=== PATIENT | female | born 1940 | race Caucasian/White ===

== ENCOUNTER 2019-03-20 14:00 | Emergency (ER) | payer OTHER | END 2019-03-20 19:41 | disposition home or self-care (01) | LOC: JER 14:00 ==

== ENCOUNTER 2019-04-06 10:07 | Emergency (ER) | payer OTHER ==
[2019-04-06 10:14] VITALS: BP 131/68; PULSE 60; TEMP 98; BMI 25.6
[2019-04-06] MEDS ORDERED: MAGNESIUM CITRATE 300 ML BOTTLE PO ONE (10:39)
--- NOTE | 2019-04-06 10:39 | PDOC ---
History of Present Illness - General Chief Complaint: Constipation Stated Complaint: CONSTIPATION Time Seen by Provider: 04/06/19 10:15 - History of Present Illness Initial Comments: 04/06/19 11:29 Chief complaint: Constipation History of present illness: Patient states that she is having smaller than usual bowel movements, consisting only of pebble sized pieces of stool. This has been an intermittent problem for several months. Denies abdominal pain, nausea, vomiting, hematemesis, melena, bloody stool. Has been prescribed MiraLAX but does not take it regularly. No other medications. Eating and drinking well Review of systems: As above. Otherwise negative Past medical history: No serious cardiac, pulmonary, metabolic, or GI disease Social/family history reviewed and noncontributory Physical exam: Alert and oriented well-developed well-nourished no acute distress cooperative Afebrile, vital signs normal No pallor or icterus. ENT clear Neck supple without bruit mass or nodes Chest clear CV regular without murmur rub or gallop Abdomen nondistended. Bowel sounds normal. Soft without mass tenderness organomegaly. No CVAT Neurological intact Rectal exam reveals no masses or tenderness. There is a normal amount of soft brown stool which is guaiac-negative Impression: Chronic constipation, no acute GI disease Plan: Symptomatic treatment and follow-up maintenance porter as directed. Return to ER if severe symptoms develop. Fully ambulatory and in no significant discomfort or other distress upon discharge to follow-up as directed Past History - Past Medical History Allergies/Adverse Reactions: Allergies Allergy/AdvReac Type Severity Reaction Status Date / Time morphine Allergy Verified 04/06/19 10:09 Home Medications: Ambulatory Orders NK [No Known Home Medication] 03/20/19 COPD: No GI Disorders: Yes (constipation, diverticulitis) Hypercholesterolemia: Yes - Surgical History Cholecystectomy: Yes - Suicide/Smoking/Psychosocial Hx Smoking Status: No Smoking History: Never smoked Have you smoked in the past 12 months: No Number of Cigarettes Smoked Daily: 0 Hx Alcohol Use: No Drug/Substance Use Hx: No *Physical Exam - Vital Signs Last Vital Signs Temp Pulse Resp BP Pulse Ox 98 F 60 18 131/68 100 04/06/19 10:08 04/06/19 10:08 04/06/19 10:08 04/06/19 10:08 04/06/19 10:08 *DC/Admit/Observation/Transfer Diagnosis at time of Disposition: Constipation Qualifiers: Constipation type: unspecified constipation type Qualified Code(s): K59.00 - Constipation, unspecified - Discharge Dispostion Disposition: HOME Condition at time of disposition: Stable Decision to Admit order: No - Referrals - Patient Instructions Printed Discharge Instructions: DI for Constipation Additional Instructions: See your GI doctor as scheduled for follow-up Continue to take MiraLAX as directed, increase fiber in your diet, and drinking more fluids Return to ER if there is severe abdominal pain, or other symptoms develop. - Post Discharge Activity
== END 2019-04-06 11:28 | disposition home or self-care (01) ==
LOC: FER 10:07
DX: K59.00 Constipation, unspecified (principal); E78.00 Pure hypercholesterolemia, unspecified
CPT/HCPCS: 36415; 82272; 99282-25

== ENCOUNTER 2019-05-11 10:51 | Day surgery (SDC) | payer OTHER | END 2019-05-11 13:45 | disposition home or self-care (01) | LOC: FASU-ENDO 10:51 ==

== ENCOUNTER 2019-06-28 09:12 | Emergency (ER) | payer OTHER | END 2019-06-28 10:56 | disposition home or self-care (01) | LOC: FER 09:12 ==

== ENCOUNTER 2019-12-14 09:30 | Day surgery (SDC) | payer OTHER ==
[2019-12-08 11:22] VITALS: BMI 25.0
[2019-12-14] MEDS ORDERED: LIDOCAINE HCL/PF 2% SDV 5ML VIAL ONE (11:58)
[2019-12-14] MEDS ORDERED: PROPOFOL 20 ML ONE ×3 (11:59)
[2019-12-14 16:06] VITALS: TEMP 98.3
[2019-12-14 16:36] VITALS: BP 132/78; PULSE 59
== END 2019-12-14 13:00 | disposition home or self-care (01) ==
LOC: FASU-ENDO 09:30
PROVIDERS: ATTEND Internal Medicine Gastroenterology
PROC: 0DJD8ZZ Inspection of Lower Intestinal Tract, Via Natural or Artificial Opening Endoscopic (ICD-10-PCS; principal; 2019-12-14 12:00)
DX: Z12.11 Encounter for screening for malignant neoplasm of colon (principal); K64.1 Second degree hemorrhoids

== ENCOUNTER 2023-03-04 10:59 | Day surgery (SDC) | payer OTHER ==
[2023-02-26 16:22] VITALS: BMI 23.6
[2023-03-04 13:11] VITALS: PULSE 68
[2023-03-04 13:12] VITALS: BP 124/70; RESP 18; TEMP 97.4
== END 2023-03-04 13:12 | disposition home or self-care (01) ==
LOC: FASU-ENDO 10:59
PROVIDERS: ATTEND Internal Medicine Gastroenterology
PROC: 0DJD8ZZ Inspection of Lower Intestinal Tract, Via Natural or Artificial Opening Endoscopic (ICD-10-PCS; principal; 2023-03-04 12:01)
DX: Z12.11 Encounter for screening for malignant neoplasm of colon (principal); K64.1 Second degree hemorrhoids; K64.8 Other hemorrhoids; K57.30 Diverticulosis of large intestine without perforation or abscess without bleeding; Z86.010 Personal history of colon polyps; I10 Essential (primary) hypertension

== ENCOUNTER 2024-05-11 09:00 | Day surgery (SDC) | payer OTHER ==
[2024-05-06 10:29] VITALS: BMI 22.6
[2024-05-11 11:49] VITALS: TEMP 97.4
[2024-05-11 12:04] VITALS: BP 118/65; PULSE 61; RESP 18
== END 2024-05-11 12:32 | disposition home or self-care (01) ==
LOC: FASU-ENDO 09:00
PROVIDERS: ATTEND Internal Medicine Gastroenterology
PROC: 0DJD8ZZ Inspection of Lower Intestinal Tract, Via Natural or Artificial Opening Endoscopic (ICD-10-PCS; principal; 2024-05-11 11:31)
DX: Z12.11 Encounter for screening for malignant neoplasm of colon (principal); Z86.010 Personal history of colon polyps

== ENCOUNTER 2024-07-13 11:25 | Day surgery (SDC) | payer OTHER ==
[2024-07-07 11:00] VITALS: BMI 22.6
[2024-07-13 11:42] VITALS: RESP 18; TEMP 97.1
[2024-07-13] MEDS ORDERED: PROPOFOL 20 ML ONE (12:32)
[2024-07-13 13:21] VITALS: BP 112/70; PULSE 62
== END 2024-07-13 13:15 | disposition home or self-care (01) ==
LOC: FASU-ENDO 11:25
PROVIDERS: ATTEND Internal Medicine Gastroenterology
PROC: 0DJD8ZZ Inspection of Lower Intestinal Tract, Via Natural or Artificial Opening Endoscopic (ICD-10-PCS; principal; 2024-07-13 12:22)
DX: Z12.11 Encounter for screening for malignant neoplasm of colon (principal); K64.1 Second degree hemorrhoids; K64.0 First degree hemorrhoids; K64.8 Other hemorrhoids; K57.30 Diverticulosis of large intestine without perforation or abscess without bleeding

== ENCOUNTER 2025-01-11 10:31 | Day surgery (SDC) | payer OTHER ==
[2025-01-04 11:34] VITALS: BMI 22.6
[2025-01-11] MEDS ORDERED: PROPOFOL 60 ML ONE (11:34)
[2025-01-11 12:27] VITALS: RESP 20; TEMP 97.3
[2025-01-11 12:41] VITALS: BP 94/57; PULSE 61
== END 2025-01-11 12:40 | disposition home or self-care (01) ==
LOC: FASU-ENDO 10:31
PROVIDERS: ATTEND Internal Medicine Gastroenterology
PROC: 0DB68ZX Excision of Stomach, Via Natural or Artificial Opening Endoscopic, Diagnostic (ICD-10-PCS; 2025-01-11)
PROC: 0DB48ZX Excision of Esophagogastric Junction, Via Natural or Artificial Opening Endoscopic, Diagnostic (ICD-10-PCS; 2025-01-11)
PROC: 0DB98ZX Excision of Duodenum, Via Natural or Artificial Opening Endoscopic, Diagnostic (ICD-10-PCS; principal; 2025-01-11 11:45)
DX: K20.90 Esophagitis, unspecified without bleeding (principal); K21.9 Gastro-esophageal reflux disease without esophagitis; R10.13 Epigastric pain
CPT/HCPCS: 88305-TC; 88342-TC

== ENCOUNTER 2025-07-04 22:36 | Emergency (ER) | payer OTHER ==
[2025-07-04 22:44] VITALS: RESP 18; TEMP 98.1; BMI 21.2
[2025-07-04] MEDS: SODIUM CHLORIDE 0.9% 500 ML INFUS.BAG IV ONE (23:41)
[2025-07-04] MEDS: ACETAMINOPHEN 1000 MG/100 ML BAG IVPB ONE (23:41)
[2025-07-04] MEDS: ONDANSETRON 4 MG/2 ML VIAL IVPB ONE (23:41)
[2025-07-04] MEDS: FAMOTIDINE 20 MG/50 ML IVPB 20 MG/50 ML MG IVPB ONE (23:41)
[2025-07-04] MEDS: MAG HYDROX/AL HYDROX/SIMETH 30 ML UNIT-DOSE CUP PO ONE (23:41)
[2025-07-04] MEDS ORDERED: MAG HYDROX/AL HYDROX/SIMETH 30 ML UNIT-DOSE CUP ONE (23:47)
[2025-07-04] MEDS ORDERED: ACETAMINOPHEN INJECTION 100 ML ONE (23:47)
[2025-07-04] MEDS ORDERED: ONDANSETRON 4 MG/2 ML VIAL ONE (23:47)
[2025-07-04] MEDS ORDERED: FAMOTIDINE 10 MG/ML VIAL IVPB ONE (23:48)
[2025-07-05] MEDS: IOHEXOL (OMNIPAQUE IV) 350 MG/ML - 100 ML BOTTLE PO ONE (00:15)
[2025-07-05 00:25] LABS: ABSOLUTE IMMATURE GRANULOCYTES 0.02 x10^3/uL (0.0-0.031); BASOPHILS # 0.01 x10^3/uL (0.01-0.08); EOSINOPHIL % 0.2 % (0.7-5.8); EOSINOPHILS # 0.02 x10^3/uL (0.04-0.36); MCHC 32.3 g/dl (32.2-35.5); MEAN CELL VOLUME 88.2 fl (79.4-94.8); MEAN PLT VOLUME 11.7 fl (9.4-12.3); MONOCYTE # 0.45 x10^3/uL (0.24-0.86); MONOCYTE % 4.4 % (4.7-12.5); RDW 12.1 % (12.5-17.0)
[2025-07-05 00:34] LABS: INR 1.06 (0.83-1.09); PROTHROMBIN TIME (PATIENT) 11.6 SEC (9.7-13.0)
[2025-07-05 00:37] LABS: ACTIVATED PTT 29.2 SECONDS (25.2-36.5)
[2025-07-05 00:50] LABS: GLUCOSE,RANDOM 119.0 mg/dL (74-106); TOT PROT 9.4 g/dl (6.4-8.2)
[2025-07-05 00:51] LABS: CO2 26.0 mmol/L (21-32)
[2025-07-05 00:53] LABS: ALK PHOS 67.0 U/L (40-150)
[2025-07-05 00:55] LABS: SGOT/AST 36.0 U/L (5-34); SGPT/ALT 37.0 U/L (0-55)
[2025-07-05 00:56] LABS: CREATININE 0.56 mg/dL (0.55-1.3)
[2025-07-05 01:16] LABS: HCV DIAGNOSTIC IN-HOUSE W/RFLX NON-REACTIVE (NONREACTIVE); HIV INTERPRETATION NEGATIVE (NEGATIVE)
[2025-07-05 02:40] VITALS: BP 167/78; PULSE 61
== END 2025-07-05 03:20 | disposition home or self-care (01) ==
LOC: JER 22:36
PROC: 3E033GC Introduction of Other Therapeutic Substance into Peripheral Vein, Percutaneous Approach (ICD-10-PCS; principal; 2025-07-04)
PROC: 3E033NZ Introduction of Analgesics, Hypnotics, Sedatives into Peripheral Vein, Percutaneous Approach (ICD-10-PCS; 2025-07-04)
PROC: 3E033GC Introduction of Other Therapeutic Substance into Peripheral Vein, Percutaneous Approach (ICD-10-PCS; 2025-07-04)
DX: R51.9 Headache, unspecified (principal); R42 Dizziness and giddiness; R11.2 Nausea with vomiting, unspecified; K59.00 Constipation, unspecified
CPT/HCPCS: 36415; 70450-TC; 71046-TC-FY; 74176-TC; 80053; 83735; 84484; 85025; 85610; 85730; 86803; 86850; 86900; 86901; 87389; 93005; 93010; 96365; 96375; 99285-25